=== PATIENT | male | born 1975 | race Hispanic/Latino ===

== ENCOUNTER 2021-09-07 23:17 | Emergency (ER) | payer BC ==
[~2021-09-07] VITALS: Ht 182.9 cm; Wt 129.3 kg
[2021-09-08] MEDS ORDERED: DOXYCYCLINE HY100 MG PO (00:26)
== END 2021-09-08 00:46 | disposition home or self-care (01) ==
LOC: ER 23:39
DX: M79.661 Pain in right lower leg (principal); R21 Rash and other nonspecific skin eruption; L29.9 Pruritus, unspecified
CPT/HCPCS: 99282

== ENCOUNTER 2024-01-26 10:39 | Emergency (ER) | payer BC ==
[~2024-01-26] VITALS: Ht 182.9 cm; Wt 121.6 kg
[~2024-01-26 10:39] MED LIST: DOXYCYCLINE HY100 MG PO
[2024-01-26 10:55] VITALS: TEMP 98.6
[2024-01-26] MEDS: SODIUM CHLORIDE 0.9% 1000ML 1,000 ML IV STA (11:30)
[2024-01-26] MEDS: ONDANSETRON HCL INJ 2MG/ML 2ML 2 MG/ML VIAL IV STA (11:30)
[2024-01-26 11:57] LABS: BASOPHILS % 0.5 % (0.0-1.0); EOSINOPHILS # (AUTO) 0.1 (0.0-0.4); EOSINOPHILS % 1.3 % (0.0-6.0); HEMATOCRIT 41.1 % (38.2-49.6); HEMOGLOBIN 14.5 g/dL (14.0-18.0); LYMPHOCYTES # (AUTO) 0.9 (1.0-3.2); LYMPHOCYTES % 23.6 % (18.0-39.1); MEAN CORPUSCULAR HGB CONC 35.3 g/dL (31-35); MEAN CORPUSCULAR VOLUME 110.5 fL (81-99); MONOCYTES # (AUTO) 0.4 (0.2-0.8); MONOCYTES % 10.6 % (4.4-11.3); NEUTROPHILS # (AUTO) 2.4 (2.1-6.9); NEUTROPHILS % 63.5 % (38.7-80.0); PLATELET COUNT 55 x10e3/uL (140-360); RED BLOOD COUNT 3.72 x10e6/uL (4.3-5.7); WHITE BLOOD COUNT 3.85 x10e3/uL (4.8-10.8)
[2024-01-26 12:17] LABS: INR 1.36; PARTIAL THROMBOPLASTIN TIME 34.9 seconds (23.8-35.5); PROTHROMBIN TIME 17.5 seconds (11.9-14.5)
[2024-01-26 12:28] LABS: ALBUMIN/GLOBULIN RATIO 0.7 (0.8-2.0); ANION GAP 9.6 mmol/L (8-16); BILIRUBIN,TOTAL 3.4 mg/dL (0.2-1.2); CALCIUM 8.4 mg/dL (8.4-10.2); CREATININE, SERUM 0.69 mg/dL (0.72-1.25); MAGNESIUM 1.9 MG/DL (1.3-2.1); POTASSIUM 3.6 mmol/L (3.5-5.1); TOTAL PROTEIN 7.4 g/dL (6.5-8.1)
[2024-01-26 12:33] LABS: TROPONIN I 0.008 ng/mL (0-0.300)
[2024-01-26] MEDS ORDERED: IOPAMIDOL 370 MG/ML 100 ML INFUS..BTL INJ ONE (13:19)
[2024-01-26 13:57] VITALS: PULSE 61; RESP 18; O2SAT 99
[2024-01-26] MEDS ORDERED: DICYCLOMINE HCL20 MG PO (15:00)
[2024-01-26] MEDS ORDERED: PANTOPRAZOLE SO40 MG PO (15:00)
[2024-01-26] MEDS ORDERED: ONDANSETRON ODT4 MG PO (15:00)
== END 2024-01-26 15:41 | disposition home or self-care (01) ==
LOC: ER 11:03
DX: R10.13 Epigastric pain (principal); K74.60 Unspecified cirrhosis of liver; F17.210 Nicotine dependence, cigarettes, uncomplicated
CPT/HCPCS: 36415; 71045; 74177; 80053; 82550; 83690; 83735; 84484; 85025; 85610; 85730; 93005; 99284; J2405; J2470; J7030; Q9967

== ENCOUNTER → 2024-02-27 | Outpatient (REF) | payer BC ==
[~2024-02-27] MED LIST changes: +DICYCLOMINE HCL20 MG PO; +MULTI-VITAMIN1 EACH PO; +ONDANSETRON ODT4 MG PO; +PANTOPRAZOLE SO40 MG PO
== END ==
LOC: US 10:30
PROVIDERS: ATTEND Nurse Practitioner
DX: Z12.11 Encounter for screening for malignant neoplasm of colon (principal); R19.4 Change in bowel habit; R93.2 Abnormal findings on diagnostic imaging of liver and biliary tract
CPT/HCPCS: 76700

== ENCOUNTER → 2024-03-03 | Day surgery (SDC) | payer BC ==
[~2024-03-03] MED LIST changes: +FENTANYL CITRATE/PF 100MCG/2 ML INJ ONE; +HYOSCYAMINE SULFATE 0.5 MG/ML INJ ONE; +LIDOCAINE HCL 2% LOCAL INJ 5 ML SDV VIAL INJ ONE; +METOCLOPRAMIDE HCL 10 MG/2ML VIAL ONE; +PROPOFOL IV EMULSION 10 MG/ML 20 ML VIAL ONE; +PROPOFOL IV EMULSION 50 ML IV ONE
[2024-03-03] MEDS: LACTATED RINGER'S 1,000 ML ONE (10:30)
[2024-03-03 13:13] VITALS: TEMP 97.4
[2024-03-03 13:35] VITALS: BP 118/79; PULSE 80; RESP 18; O2SAT 97
== END | disposition home or self-care (01) ==
LOC: OR 09:54
PROVIDERS: ATTEND Internal Medicine Gastroenterology
DX: K20.90 Esophagitis, unspecified without bleeding (principal); K29.50 Unspecified chronic gastritis without bleeding; K31.89 Other diseases of stomach and duodenum; K25.9 Gastric ulcer, unspecified as acute or chronic, without hemorrhage or perforation; K76.6 Portal hypertension; K64.8 Other hemorrhoids; R19.4 Change in bowel habit; Z01.810 Encounter for preprocedural cardiovascular examination; K76.89 Other specified diseases of liver
CPT/HCPCS: 43239; 45378; 93005; J1980; J2003; J2470; J2765